=== PATIENT | female | born 1985 | race Caucasian/White ===

== ENCOUNTER 2018-08-09 20:49 | Emergency (ER) | payer SELFPAY ==
[2018-08-09] MEDS ORDERED: Sodium Chloride 0.9% 10 ML Syringe FLUSH PRN (21:11)
[2018-08-09] MEDS ORDERED: Sodium Chloride 0.9% 2.5 ML Syringe FLUSH PRN (21:11)
[2018-08-09] MEDS ORDERED: cefTRIAXone 2 GM in Premix Bag 1 BAG IV ONE (21:12)
[2018-08-09] MEDS ORDERED: Sodium Chloride 0.9% 1,000 ML IV ONE (21:12)
[2018-08-09] MEDS ORDERED: Ketorolac 30 MG/ML SDV IVPUSH ONE (21:12)
[2018-08-09] MEDS ORDERED: Lidocaine 2% Viscous Solution 15 ML Cup PO ONE (21:12)
--- NOTE | 2018-08-09 21:16 | EDM.PDOC ---
ED HPI GENERAL MEDICAL PROBLEM - General Chief Complaint: ENT Problem Stated Complaint: PT HAS SORE THROAT Time Seen by Provider: 08/09/18 20:55 - History of Present Illness INITIAL COMMENTS - FREE TEXT/NARRATIVE: HISTORY AND PHYSICAL: History of present illness: The patient is a 33-year-old female with no stated medical history and presents with a one day history of sore throat more on the right side, right ear pain subjective fevers body aches and hoarse voice. She said this all started this morning and yesterday she had a normal day. She has not documented a fever and she has only a slight cough and no vomiting or abdominal pain. She denies as she is not sexually active. She did not get her flu shot this year. She is eating and drinking but says it's very painful to swallow and she has no history of a tonsillectomy. Review of systems: As per history of present illness and below otherwise all systems reviewed and negative. Past medical history: As per history of present illness and as reviewed below otherwise noncontributory. Surgical history: As per history of present illness and as reviewed below otherwise noncontributory. Social history: No reported history of drug or alcohol abuse. Family history: As per history of present illness and as reviewed below otherwise noncontributory. Physical exam: General: Well-developed well-nourished overweight female who is nontoxic and vital signs are noted by me. She has a hoarse voice on my evaluation but it is not muffled and it is squeaky at times. She looks uncomfortable with speaking. She is handling her secretions without difficulty. HEENT: Atraumatic, normocephalic, pupils reactive, negative for conjunctival pallor or scleral icterus, mucous membranes moist, throat clear of exudates but the tonsillar area are enlarged bilaterally but right is slightly greater than left and the uvula is very small and is not deviated, there is some shoddy anterior cervical adenopathy but no posterior adenopathy or nuchal rigidity. There is no thyromegaly neck supple, nontender, trachea midline. Lungs: Clear to auscultation, breath sounds equal bilaterally, chest nontender.No wheezing stridor or work of breathing Heart: S1S2, regular rate and rhythm no overt murmurs Abdomen: Soft, nondistended, nontender. NABS Pelvis: Deferred Genitourinary: Deferred. Rectal: Deferred. Extremities: Atraumatic, negative for cords or calf pain.Full range of motion without defects or deficits Neurovascular unremarkable. Neuro: Awake, alert, oriented. Cranial nerves II through XII unremarkable. Cerebellum unremarkable. Motor and sensory unremarkable throughout. Exam nonfocal. Diagnostics: CBC CMP UCG rapid strep influenza CT scan of the soft tissue neck Therapeutics: IV fluids Toradol Rocephin viscous lidocaine clindamycin orally Decadron IV, Tylenol No. 3 elixir 2334: Case was discussed with Dr. Floyd the ENT on-call at [facility] and he says that with that CAT scan finding the abscess is so small that he would not drain it at this time. He recommends starting her on clindamycin and the Decadron every ordered. He said that she can follow-up either with our ENT Dr. Combs or with him and does not need transfer for emergent care other than what I given her period I will relay all of this to the patient and give her strict advice area patient now has a ride so we'll give her some T3 elixir Impression: Strep tonsillitis with small right peritonsillar abscess Definitive disposition and diagnosis as appropriate pending reevaluation and review of above. throat Pain Score (Numeric/FACES): 6 - Related Data Allergies Allergy/AdvReac Type Severity Reaction Status Date / Time No Known Allergies Allergy Verified 08/09/18 21:10 Home Meds: Home Meds . [No Known Home Meds] 08/09/18 [History] Past Medical History - Past Health History Medical/Surgical History: Denies Medical/Surgical History Social & Family History - Family History Family Medical History: Noncontributory - Caffeine Use Caffeine Use: Reports: Energy Drinks ED ROS GENERAL - Review of Systems Review Of Systems: ROS reveals no pertinent complaints other than HPI. ED EXAM, GENERAL - Physical Exam Exam: See Below (See dictation) Course - Vital Signs Last Recorded V/S: Last Vital Signs Temp 36.5 C 08/09/18 21:04 Pulse 103 H 08/09/18 21:04 Resp 16 08/09/18 21:04 BP 144/59 H 08/09/18 21:04 Pulse Ox 95 08/09/18 21:04 - Orders/Labs/Meds Orders: Active Orders 24 hr Category Date Time Status Acetaminophen/Codeine [Tylenol/Codeine 120-12 MG/5 ML] Med 08/09/18 23:41 Once 15 ml PO ONETIME ONE Sodium Chloride 0.9% [Saline Flush] Med 08/09/18 21:11 Active 10 ml FLUSH ASDIRECTED PRN Sodium Chloride 0.9% [Saline Flush] Med 08/09/18 21:11 Active 2.5 ml FLUSH ASDIRECTED PRN Saline Lock Insert [OM.PC] Stat Oth 08/09/18 21:10 Ordered Medication Orders Sodium Chloride (Saline Flush) 10 ml FLUSH ASDIRECTED PRN PRN Reason: Keep Vein Open Sodium Chloride (Saline Flush) 2.5 ml FLUSH ASDIRECTED PRN PRN Reason: Keep Vein Open Labs: Laboratory Tests 08/09/18 08/09/18 08/09/18 Range/Units 21:13 21:20 21:20 WBC 12.72 H (4.0-11.0) K/uL RBC 4.78 (4.30-5.90) M/uL Hgb 14.0 (12.0-16.0) g/dL Hct 41.0 (36.0-46.0) % MCV 85.8 (80.0-98.0) fL MCH 29.3 (27.0-32.0) pg MCHC 34.1 (31.0-37.0) g/dL RDW Std Deviation 42.0 (28.0-62.0) fl RDW Coeff of Nick 13 (11.0-15.0) % Plt Count 395 (150-400) K/uL MPV 10.00 (7.40-12.00) fL Neut % (Auto) 74.3 (48.0-80.0) % Lymph % (Auto) 18.4 (16.0-40.0) % Parmer % (Auto) 5.9 (0.0-15.0) % Eos % (Auto) 1.1 (0.0-7.0) % Baso % (Auto) 0.3 (0.0-1.5) % Neut # (Auto) 9.5 H (1.4-5.7) K/uL Lymph # (Auto) 2.3 (0.6-2.4) K/uL Parmer # (Auto) 0.8 (0.0-0.8) K/uL Eos # (Auto) 0.1 (0.0-0.7) K/uL Baso # (Auto) 0.0 (0.0-0.1) K/uL Nucleated RBC % 0.0 /100WBC Nucleated RBCs # 0 K/uL Sodium 139 (136-145) mmol/L Potassium 3.3 L (3.5-5.1) mmol/L Chloride 102 (98-107) mmol/L Carbon Dioxide 28.1 (21.0-32.0) mmol/L BUN 10 (7.0-18.0) mg/dL Creatinine 0.6 (0.6-1.0) mg/dL Est Cr Clr Drug Dosing 105.48 mL/min Estimated GFR (MDRD) > 60.0 ml/min Glucose 106 (74-106) mg/dL Calcium 9.3 (8.5-10.1) mg/dL Total Bilirubin 0.7 (0.2-1.0) mg/dL AST 23 (15-37) IU/L ALT 29 (14-63) IU/L Alkaline Phosphatase 65 (46-116) U/L Total Protein 7.9 (6.4-8.2) g/dL Albumin 3.6 (3.4-5.0) g/dL Globulin 4.3 H (2.6-4.0) g/dL Albumin/Globulin Ratio 0.8 L (0.9-1.6) Urine HCG, Qual NEGATIVE (NEGATIVE) Meds: Medications Generic Name Dose Route Start Last Admin Trade Name Chris PRN Reason Stop Dose Admin Sodium Chloride 10 ml 08/09/18 21:11 Saline Flush FLUSH ASDIRECTED PRN Keep Vein Open Sodium Chloride 2.5 ml 08/09/18 21:11 Saline Flush FLUSH ASDIRECTED PRN Keep Vein Open Discontinued Medications Generic Name Dose Route Start Last Admin Trade Name Chris PRN Reason Stop Dose Admin Clindamycin HCl 300 mg 08/09/18 23:35 08/09/18 23:39 Cleocin PO 08/09/18 23:36 300 mg ONETIME ONE Administration Dexamethasone 10 mg 08/09/18 23:33 08/09/18 23:40 Dexamethasone IVPUSH 08/09/18 23:34 10 mg ONETIME ONE Administration Ceftriaxone Sodium/Dextrose 2 50 mls @ 100 mls/hr 08/09/18 21:12 08/09/18 21: 32 gm/ Premix IV 08/09/18 21:41 100 mls/hr ONETIME ONE Administration Sodium Chloride 1,000 mls @ 999 mls/hr 08/09/18 21:12 08/09/18 21:31 Normal Saline IV 08/09/18 22:12 999 mls/hr STAT ONE Administration Iopamidol 100 ml 08/09/18 22:04 08/09/18 22:09 Isovue-370 (76%) IVPUSH 08/09/18 22:05 100 ml ONETIME ONE Administration Ketorolac Tromethamine 30 mg 08/09/18 21:12 08/09/18 21:31 Toradol IVPUSH 08/09/18 21:13 30 mg ONETIME ONE Administration Lidocaine HCl 15 ml 08/09/18 21:12 08/09/18 21:31 Xylocaine 2% Viscous PO 08/09/18 21:13 15 ml ONETIME ONE Administration Departure - Departure Time of Disposition: 23:42 Disposition: Home, Self-Care 01 Condition: Good Clinical Impression: Strep tonsillitis, Peritonsillar abscess - Discharge Information Referrals: PCP,None [Primary Care Provider] - Forms: ED Department Discharge Additional Instructions: The following information is given to patients seen in the emergency department who are being discharged to home. This information is to outline your options for follow-up care. We provide all patients seen in our emergency department with a follow-up referral. The need for follow-up, as well as the timing and circumstances, are variable depending upon the specifics of your emergency department visit. If you don't have a primary care physician on staff, we will provide you with a referral. We always advise you to contact your personal physician following an emergency department visit to inform them of the circumstance of the visit and for follow-up with them and/or the need for any referrals to a consulting specialist. The emergency department will also refer you to a specialist when appropriate. This referral assures that you have the opportunity for followup care with a specialist. All of these measure are taken in an effort to provide you with optimal care, which includes your followup. Under all circumstances we always encourage you to contact your private physician who remains a resource for coordinating your care. When calling for followup care, please make the office aware that this follow-up is from your recent emergency room visit. If for any reason you are refused follow-up, please contact the [facility] emergency department at and ask to speak to the emergency department charge nurse. [facility] Specialty Care - ENT [address] [place] [id number] Please take all medications as prescribed and push hydration with sips of fluid soft foods and ice chips. You may also add [id number] ibuprofen/Motrin for pain and fevers. Fill the prescriptions yet been given and start taking the antibiotics tomorrow morning. You have been given doses of all medications here this evening and your good until the morning. Please call and schedule a follow- up appointment either with Dr. Combs our ENT specialist or with Dr. Floyd in [place] at [facility] using the resources you have been given. Return to ER as needed and as discussed - My Orders Last 24 Hours: My Active Orders 08/09/18 21:10 Saline Lock Insert [OM.PC] Stat 08/09/18 21:11 Sodium Chloride 0.9% [Saline Flush] 10 ml FLUSH ASDIRECTED PRN Sodium Chloride 0.9% [Saline Flush] 2.5 ml FLUSH ASDIRECTED PRN 08/09/18 23:41 Acetaminophen/Codeine [Tylenol/Codeine 120-12 MG/5 ML] 15 ml PO ONETIME ONE - Assessment/Plan Last 24 Hours: My Active Orders 08/09/18 21:10 Saline Lock Insert [OM.PC] Stat 08/09/18 21:11 Sodium Chloride 0.9% [Saline Flush] 10 ml FLUSH ASDIRECTED PRN Sodium Chloride 0.9% [Saline Flush] 2.5 ml FLUSH ASDIRECTED PRN 08/09/18 23:41 Acetaminophen/Codeine [Tylenol/Codeine 120-12 MG/5 ML] 15 ml PO ONETIME ONE
[2018-08-09 21:49] LABS: CHLORIDE,CL 102 mmol/L (98-107); SODIUM,NA 139 mmol/L (136-145)
[2018-08-09] MEDS ORDERED: Iopamidol 755 Mg/ML 100 ML Bottle IVPUSH ONE (22:04)
--- NOTE | 2018-08-09 23:28 | CT ---
INDICATION: Right-sided throat pain with vocal changes. COMPARISON: None available TECHNIQUE: CT examination of the neck is performed with 3 mm thick axial sections during the uneventful intravenous administration of 100 cc of Isovue 370. Coronal reconstructions were also made. Please note that all CT scans at this facility use dose modulation, iterative reconstruction, and/or weight-based dosing when appropriate to reduce radiation dose to as low as reasonably achievable. FINDINGS: There is moderate swelling of the right pharyngeal tonsil with a small abscess in the medial tonsil measuring 11 x 8 x 9 millimeters, consistent with an abscess. This results in moderate narrowing of the hypopharyngeal airway, without risk of compromised at this time. There is mild fullness of the left pharyngeal tonsil and adenoidal soft tissues representing hypertrophy of the rest of the lymphoid tissue of Waldeyer`s ring. There is mild fullness of superior jugular lymph nodes bilaterally, the right lymph node measuring 1.6 x 1.3 centimeters and the left lymph node measuring 1.6 x 1.2 centimeters. These are not large enough to be described this adenopathy and are consistent with reactive lymph nodes. The rest of the airway structures are normal in appearance. There is no sign of cervical mass or adenopathy elsewhere on today`s study. The salivary glands are normal in appearance. The visualized posterior fossa, mastoids, skull base, orbits, and paranasal sinuses are normal in appearance. The great vessels are unremarkable. The thyroid gland is normal in appearance. The visualized upper chest is clear. The visualized upper mediastinum is normal in appearance. The osseous structures are unremarkable. IMPRESSION: Small abscess in the right pharyngeal tonsil measuring 11 x 8 x 9 millimeters. Moderate enlargement of the right pharyngeal tonsil results in narrowing of the hypopharyngeal airway without impending airway compromise. Mild hypertrophy of the left pharyngeal tonsil and adenoids. Mild reactive superior jugular chain lymph nodes. Please note that all CT scans at this facility use dose modulation, iterative reconstruction, and/or weight-based dosing when appropriate to reduce radiation dose to as low as reasonably achievable. Dictated by Russell Gusman MD @ Aug 09 2018 11:18PM Signed by Dr. Russell Gusman @ Aug 09 2018 11:27PM
[2018-08-09] MEDS ORDERED: Dexamethasone 10 MG/ML SDV IVPUSH ONE (23:33)
[2018-08-09] MEDS ORDERED: Clindamycin HCl 150 MG Cap PO ONE (23:35)
[2018-08-09] MEDS ORDERED: Acetaminophen/Codeine 120-12 MG/5 ML Soln 5 ML UD Cup PO ONE (23:41)
== END 2018-08-09 23:55 | disposition home or self-care (01) ==
LOC: MW.ED 20:49
DX: J03.00 Acute streptococcal tonsillitis, unspecified (principal)
CPT/HCPCS: 36415; 70491; 80053; 81025; 85025; 87804; 87880; 96361; 96365; 96375; 99284; A9270; J0696; J1100; J1885; J7040; Q9967

== ENCOUNTER 2021-06-20 20:27 | Emergency (ER) | payer SELFPAY ==
--- NOTE | 2021-06-20 20:41 | EDM.PDOC ---
ED HPI GENERAL MEDICAL PROBLEM - General Chief Complaint: General Stated Complaint: FEVER, HEADACHE, COUGH, BODY ACHES Time Seen by Provider: 06/20/21 20:28 Source of Information: Reports: Patient History Limitations: Reports: No Limitations - History of Present Illness INITIAL COMMENTS - FREE TEXT/NARRATIVE: HISTORY AND PHYSICAL: History of present illness: Patient is a 36-year-old female who presents to the emergency room with complaints of generalized headache, dry cough, body aches and subjective fever and chills. She states her sister and niece both have COVID-19, she is concerned she has been exposed through them. Patient denies any neck pain/stiffness, change in vision, syncope or near syncope. Denies any chest pain, back pain, shortness of breath, abdominal pain, nausea, vomiting, diarrhea, constipation or dysuria. Has not noted any blood in urine or stool. Patient has been eating and drinking appropriately. No recent travel or sick contacts. Review of systems: As per history of present illness and below otherwise all systems reviewed and negative. Past medical history: As per history of present illness and as reviewed below otherwise noncontributor y. Surgical history: As per history of present illness and as reviewed below otherwise noncontributory. Social history: See social history for further information Family history: As per history of present illness and as reviewed below otherwise noncontributory. Physical exam: General: Well developed and well nourished 36 year old male. Alert and orientated x 3. Nontoxic in appearance and in no acute distress. Vital signs are stable and have been reviewed by me. Nursing notes were reviewed. HEENT: Atraumatic, normocephalic, pupils equal and reactive bilaterally, negative for conjunctival pallor or scleral icterus, mucous membranes moist, TMs normal bilaterally, throat clear, neck supple, nontender, trachea midline. No drooling or trismus noted. No meningeal signs. No hot potato voice noted. Lungs: Clear to auscultation bilaterally. No wheezes, rales, or rhonchi. Chest nontender. Normal work of breathing, no accessory muscles used. Heart: S1S2, regular rate and rhythm without overt murmur, gallops, or rubs. No JVD. No peripheral edema Abdomen: Soft, nondistended, nontender. Normoactive bowel sounds. Negative for masses or costovertebral tenderness.. Skin: Intact, warm, dry. No lesions or rashes noted. Hematologic: No petechiae or purpra. Mucosa appropriate color and normal nail bed color and refill. Extremities: Atraumatic, moves all extremities per self without difficulty or deficits, negative for cords or calf pain. Neurovascular unremarkable. Neuro: Awake, alert, oriented. Cranial nerves II through XII unremarkable. Cerebellum unremarkable. Motor and sensory unremarkable throughout. Exam nonfocal. Psychiatric: Mood and affect are appropriate. Normal thought process. Answering questions appropriately. Please note that the patient was seen and evaluated during the 2019 SARS-CoV-2 novel coronavirus pandemic period. Community viral transmission is ongoing at time of this encounter and the emergency department is operating under pandemic response procedures. Medical Decision Making: Patient is a 36-year-old female who presents to the emergency room with concerns of COVID-19. We will test for COVID-19 and influenza. Her lung sounds are clear and oxygen saturation is above 96% on room air. I did offer to give her Toradol IM, she declines. She states she has taken plht-bnt-danxris products with minimal relief, rating her headache at a 5/10. Does not describe this as the worst headache of her life. I have talked with the patient about today's findings, in addition to providing specific details for plan of care. Reassessment at the time of disposition demonstrates that the patient is in no acute distress. The patient is stable for discharge, counseling was provided and we discussed in great detail signs and symptoms that would prompt them to return to the Emergency Department. Medication, follow up and supportive care measures were reviewed and discussed. Voices understanding and is agreeable to plan of care. Denies any further questi ons or concerns at this time. Diagnostics: COVID, Influenza Therapeutics: None Prescription: Zofran Impression: COVID-19 Plan: 1. You were evaluated today on an emergent basis. Your COVID-19 screening is positive. That means you do have the coronavirus and you are considered contagious. Your vital signs and oxygen saturation are well enough that you were able to monitor your symptoms at home. Continue to monitor for trouble breathing, new confusion or inability to arouse, bluish lips or face or any of the other symptoms we discussed -if this occurs please return to the emergency room immediately. 2. Please self quarantine until cleared by [facility] Department. Inform any persons that you have been in contact with since you started becoming symptomatic that you have tested positive; they should be made aware and take the appropriate steps as needed. 3. You can take NyQuil during the evening to help get a restful night sleep. May alternate Tylenol and ibuprofen as needed for pain and fever management. 4. The [facility] department will be calling you and following up with you. The [place] COVID 19 Hotline phone number , They are open Friday - Friday 7am - 7pm. Follow up with your primary care provider for re-evaluation as directed. Definitive disposition and diagnosis as appropriate pending reevaluation and review of above. Bilateral Generalized Pain Score (Numeric/FACES): 5 - Related Data Allergies Allergy/AdvReac Type Severity Reaction Status Date / Time No Known Allergies Allergy Verified 06/20/21 20:37 Home Meds: Home Meds Ondansetron [Zofran ODT] 4 mg PO Q6H PRN #8 tab.dis 06/20/21 [Rx] Past Medical History - Past Health History Medical/Surgical History: Denies Medical/Surgical History - Infectious Disease History Infectious Disease History: Reports: Chicken Pox Social & Family History - Family History Family Medical History: No Pertinent Family History - Caffeine Use Caffeine Use: Reports: Energy Drinks ED ROS GENERAL - Review of Systems Review Of Systems: Comprehensive ROS is negative, except as noted in HPI. ED EXAM, GENERAL - Physical Exam Exam: See Below (See dictation) Course - Vital Signs Last Recorded V/S: Last Vital Signs Temp 100.5 F 06/20/21 20:37 Pulse 93 06/20/21 20:37 Resp 17 06/20/21 20:37 BP 136/74 06/20/21 20:37 Pulse Ox 98 06/20/21 20:37 - Orders/Labs/Meds Labs: Laboratory Tests 06/20/21 Range/Units 20:40 Influenza Type A RNA NEGATIVE (NEGATIVE) Influenza Type B RNA NEGATIVE (NEGATIVE) SARS-CoV-2 RNA (NINA) POSITIVE H (NEGATIVE) Departure - Departure Time of Disposition: 21:41 Disposition: Home, Self-Care 01 Clinical Impression: COVID-19 - Discharge Information Prescriptions: Ondansetron [Zofran ODT] 4 mg PO Q6H PRN #8 tab.dis PRN Reason: Nausea Instructions: 10 Things You Can Do to Manage Your COVID-19 Symptoms at Home - [facility] (01/12/2021) Forms: ED Department Discharge Additional Instructions: The following information is given to patients seen in the emergency department who are being discharged to home. This information is to outline your options for follow-up care. We provide all patients seen in our emergency department with a follow-up referral. The need for follow-up, as well as the timing and circumstances, are variable depending upon the specifics of your emergency department visit. If you don't have a primary care physician on staff, we will provide you with a referral. We always advise you to contact your personal physician following an emergency department visit to inform them of the circumstance of the visit and for follow-up with them and/or the need for any referrals to a consulting specialist. The emergency department will also refer you to a specialist when appropriate. This referral assures that you have the opportunity for follow-up care with a specialist. All of these measure are taken in an effort to provide you with optimal care, which includes your follow-up. Under all circumstances we always encourage you to contact your private physician who remains a resource for coordinating your care. When calling for follow-up care, please make the office aware that this follow-up is from your recent emergency room visit. If for any reason you are refused follow-up, please contact the [facility] Emergency Department at and asked to speak to the emergency department charge nurse. [facility] [address] [place] [address] [id number] [address] [address] Thank you for choosing the [facility] emergency department in [place] for your medical needs today. It was a pleasure caring for you. Today you were seen in the emergency department for COVID-19 Your prescription was electronically sent to: [facility] Medication/Directions: Zofran as needed for nausea management. 1. You were evaluated today on an emergent basis. Your COVID-19 screening is positive. That means you do have the coronavirus and you are considered conta gious. Your vital signs and oxygen saturation are well enough that you were able to monitor your symptoms at home. Continue to monitor for trouble breathing, new confusion or inability to arouse, bluish lips or face or any of the other symptoms we discussed -if this occurs please return to the emergency room immediately. 2. Please self quarantine until cleared by [facility] Department. Inform any persons that you have been in contact with since you started becoming symptomatic that you have tested positive; they should be made aware and take the appropriate steps as needed. 3. You can take NyQuil during the evening to help get a restful night sleep. May alternate Tylenol and ibuprofen as needed for pain and fever management. 4. The [facility] department will be calling you and following up with you. The [place] COVID 19 Hotline phone number , They are open Friday - Friday 7am - 7pm. Follow up with your primary care provider for re-evaluation as directed. Sepsis Event Note (ED) - Focused Exam Vital Signs: Vital Signs Temp Pulse Resp BP Pulse Ox 06/20/21 20:37 100.5 F 93 17 136/74 98
[2021-06-20 21:21] LABS: CORONAVIRUS COVID-19 NAA POSITIVE (NEGATIVE); INFLUENZA A NAA NEGATIVE (NEGATIVE); INFLUENZA B NAA NEGATIVE (NEGATIVE)
== END 2021-06-20 21:47 | disposition home or self-care (01) ==
LOC: MW.ED 20:27
DX: U07.1 COVID-19 (principal)
CPT/HCPCS: 0240U; 99284; 99283

== ENCOUNTER 2021-06-27 10:18 | Emergency (ER) | payer SELFPAY ==
--- NOTE | 2021-06-27 11:55 | EDM.PDOC ---
ED HPI GENERAL MEDICAL PROBLEM - General Chief Complaint: General Stated Complaint: BODYACHES HEADACHE Time Seen by Provider: 06/27/21 10:25 Source of Information: Reports: Patient History Limitations: Reports: No Limitations - History of Present Illness INITIAL COMMENTS - FREE TEXT/NARRATIVE: HISTORY AND PHYSICAL: History of present illness: Patient is a 36-year-old female who presents today with Covid symptoms that are not improving. Patient tested positive for Covid week ago and has had symptoms for roughly 8 days. Patient is interested in monoclonal antibodies as patient sister received them and made her feel better. Patient reports cough, shortness of breath, nasal congestion, chills, diarrhea, loss of taste, loss of smell, back pain, and migraines. Patient reports Tylenol helps back pain but does not help migraines. Patient denies neck stiff ness, change in vision, syncope, or near syncope. Denies nausea, vomiting, abdominal pain, constipation, or dysuria. Has not noted any blood in urine or stool. Patient has been eating and drinking appropriately. Review of systems: As per history of present illness and below otherwise all systems reviewed and negative. Past medical history: As per history of present illness and as reviewed below otherwise noncontributory. Surgical history: As per history of present illness and as reviewed below otherwise noncontributory. Social history: See social history for further information Family history: As per history of present illness and as reviewed below otherwise noncontributory. Physical exam: General: Patient is alert, oriented, and in no acute distress. Patient sitting comfortably on exam table. Vitals stable and reviewed by me. HEENT: Atraumatic, normocephalic, pupils equal and reactive bilaterally, negative for conjunctival pallor or scleral icterus, mucous membranes moist, throat clear, neck supple, nontender, trachea midline. No drooling or trismus noted. No meningeal signs. No hot potato voice noted. Lungs: Dry cough on exam, clear to auscultation, breath sounds equal bilaterally, chest nontender. Heart: S1S2, regular rate and rhythm without overt murmur Skin: Intact, warm, dry. No lesions or rashes noted. Extremities: Atraumatic, negative for cords or calf pain. Neurovascular unremarkable. Neuro: Awake, alert, oriented. Cranial nerves II through XII unremarkable. Cerebellum unremarkable. Motor and sensory unremarkable throughout. Exam nonfocal. Medical Decision Making: Strict return precautions thoroughly discussed with patient. Discussed importance for follow-up with a primary care provider following COVID-19 quarantine restrictions. Voices understanding and is agreeable to plan of care. Denies any further questions or concerns at this time. Diagnostics: None Therapeutics: None Prescription: Outpatient monoclonal antibodies Impression: COVID 19 viral infection Plan: 1. Your vital signs and oxygen saturation are well enough that you were able to monitor your symptoms at home. Continue to monitor for trouble breathing, new confusion or inability to arouse, bluish lips or face or any of the other symptoms we discussed -if this occurs please return to the emergency room.Continue to monitor your health at home for worsening symptoms so that you can be taken care of and treated quickly if needed. 2. Please self quarantine until 10 days have passed since your symptoms began AND you are fever free (<100.4 degrees fahrenheit) for 24 hours without the use of fever-reducing medications AND symptoms are improving. You should restrict activities outside of your home, except for getting medical care. Do not go to work, school, or public areas. Avoid using public transportation, ride-sharing, or taxis. Inform any persons that you have been in contact with since you started becoming symptomatic that you have tested positive; they should be made aware and take the appropriate steps as needed. 3. You may alternate Tylenol and ibuprofen as needed for pain and fever management. 4. The [facility] will be calling you and following up with you. The [place] COVID 19 Hotline phone number , They are open Friday - Friday 7am - 7pm. Follow up with your primary care provider for re-evaluation and re-testing after quarantine and discuss when you should be seen. 6. For more specific guidelines regarding isolation/quarantine please visit this website. https://www.health.[place].gov/sites/www/files/documents/Files/HARPER/coronavirus/Factsh eet_for_People_With_COVID-19.pdf Definitive disposition and diagnosis as appropriate pending reevaluation and review of above. Back Pain Score (Numeric/FACES): 5 - Related Data Allergies Allergy/AdvReac Type Severity Reaction Status Date / Time No Known Allergies Allergy Verified 06/27/21 10:52 Home Meds: Home Meds . [No Known Home Meds] 06/27/21 [History] Past Medical History - Past Health History Medical/Surgical History: Denies Medical/Surgical History - Infectious Disease History Infectious Disease History: Reports: Chicken Pox Social & Family History - Family History Family Medical History: No Pertinent Family History - Tobacco Use Tobacco Use Status *Q: Former Tobacco User Used Tobacco, but Quit: Yes Month/Year Tobacco Last Used: 06/2010 - Caffeine Use Caffeine Use: Reports: Energy Drinks - Recreational Drug Use Recreational Drug Use: No ED ROS GENERAL - Review of Systems Review Of Systems: Comprehensive ROS is negative, except as noted in HPI. ED EXAM, GENERAL - Physical Exam Exam: See Below (see dictation) Course - Vital Signs Last Recorded V/S: Last Vital Signs Temp 97 F 06/27/21 10:53 Pulse 90 06/27/21 10:53 Resp 20 06/27/21 10:53 BP 123/59 L 06/27/21 10:53 Pulse Ox 95 06/27/21 10:53 Departure - Departure Time of Disposition: 11:46 Disposition: Home, Self-Care 01 Clinical Impression: COVID-19 virus infection - Discharge Information Referrals: Crissy Canales MD [Primary Care Provider] - Forms: ED Department Discharge Additional Instructions: The following information is given to patients seen in the emergency department who are being discharged to home. This information is to outline your options for follow-up care. We provide all patients seen in our emergency department with a follow-up referral. The need for follow-up, as well as the timing and circumstances, are variable depending upon the specifics of your emergency department visit. If you don't have a primary care physician on staff, we will provide you with a referral. We always advise you to contact your personal physician following an emergency department visit to inform them of the circumstance of the visit and for follow-up with them and/or the need for any referrals to a consulting specialist. The emergency department will also refer you to a specialist when appropriate. This referral assures that you have the opportunity for follow-up care with a specialist. All of these measure are taken in an effort to provide you with optimal care, which includes your follow-up. Under all circumstances we always encourage you to contact your private physician who remains a resource for coordinating your care. When calling for follow-up care, please make the office aware that this follow-up is from your recent emergency room visit. If for any reason you are refused follow-up, please contact the [facility] Emergency Department at and asked to speak to the emergency department charge nurse. [facility] [address] [place] [address] [facility] [address] [place] [id number] 1. Your vital signs and oxygen saturation are well enough that you were able to monitor your symptoms at home. Continue to monitor for trouble breathing, new confusion or inability to arouse, bluish lips or face or any of the other symptoms we discussed -if this occurs please return to the emergency room.Continue to monitor your health at home for worsening symptoms so that you can be taken care of and treated quickly if needed. 2. Please self quarantine until 10 days have passed since your symptoms began AND you are fever free (<100.4 degrees fahrenheit) for 24 hours without the use of fever-reducing medications AND symptoms are improving. You should restrict activities outside of your home, except for getting medical care. Do not go to work, school, or public areas. Avoid using public transportation, ride-sharing, or taxis. Inform any persons that you have been in contact with since you started becoming symptomatic that you have tested positive; they should be made aware and take the appropriate steps as needed. 3. You may alternate Tylenol and ibuprofen as needed for pain and fever management. 4. [facility] will be calling you and following up with you. The [place] COVID 19 Hot[place] phone number , They are open Friday - Friday 7am - 7pm. Follow up with your primary care provider for re-evaluation and re-testing after quarantine and discuss when you should be seen. 6. For more specific guidelines regarding isolation/quarantine please visit this website. https://www.health.[place].gov/sites /www/files/documents/Files/HARPER/coronavirus/Factsheet_for_People_With_COVID- 19.pdf Sepsis Event Note (ED) - Evaluation Sepsis Screening Result: No Definite Risk - Focused Exam Vital Signs: Vital Signs Temp Pulse Resp BP Pulse Ox 06/27/21 10:53 97 F 90 20 123/59 L 95
== END 2021-06-27 12:15 | disposition home or self-care (01) ==
LOC: MW.ED 10:18
DX: U07.1 COVID-19 (principal); Z87.891 Personal history of nicotine dependence
CPT/HCPCS: 99284

== ENCOUNTER 2025-05-18 11:22 | Emergency (ER) | payer SELFPAY ==
[2025-05-18 13:02] LABS: APPEARANCE,URINE CLEAR; GLUCOSE,URINE NEGATIVE (NEGATIVE); OCCULT BLOOD,URINE NEGATIVE (NEGATIVE)
[2025-05-18 13:11] LABS: SQUAMOUS EPITHELIAL CELLS,UR FEW
== END 2025-05-18 13:49 | disposition home or self-care (01) ==
LOC: MW.ED 11:22
DX: S33.5XXA Sprain of ligaments of lumbar spine, initial encounter (principal); F17.200 Nicotine dependence, unspecified, uncomplicated; Z79.899 Other long term (current) drug therapy; X58.XXXA Exposure to other specified factors, initial encounter
CPT/HCPCS: 81001; 99283